=== PATIENT | male | born 1985 | race Caucasian/White ===

== ENCOUNTER 2017-11-08 22:39 | Emergency (ER) | payer MEDICAID ==
[~2017-11-08] VITALS: Ht 177.8 cm; Wt 74.4 kg
[~2017-11-08 22:39] MED LIST: CLOT15CR5 TOP; PALI234D IM; PHEN100C4 PO
[2017-11-08 22:40] VITALS: BP 144/87
[2017-11-08] MEDS ORDERED: PENI250T2 PO (22:55)
[2017-11-08] MEDS ORDERED: TRAM50TA2 PO (22:55)
[2017-11-08] MEDS ORDERED: HYDROcodone/acetaminophen 10/325mg tab PO ONE (22:55)
[2017-11-08] MEDS ORDERED: CefTRIAXone 250MG IM Kit w/LIDOcaine IM ONE (22:55)
[2017-11-08] MEDS ORDERED: ondansetron 4mg rapidly disintigrating tab PO ONE (23:00)
== END 2017-11-08 23:13 | disposition home or self-care (01) ==
LOC: ER 22:39
DX: K04.7 Periapical abscess without sinus (principal); F12.90 Cannabis use, unspecified, uncomplicated; Z56.0 Unemployment, unspecified; Z98.890 Other specified postprocedural states; Z88.6 Allergy status to analgesic agent
CPT/HCPCS: 96372; 99283; J0696

== ENCOUNTER 2017-11-10 14:45 | Emergency (ER) | payer MEDICAID ==
[~2017-11-10] VITALS: Ht 177.8 cm; Wt 76.0 kg
[~2017-11-10 14:45] MED LIST changes: +PENI250T2 PO; +TRAM50TA2 PO
[2017-11-10 14:55] VITALS: BP 112/80
== END 2017-11-10 17:30 | disposition left against medical advice (07) ==
LOC: ER 14:46
DX: K08.89 Other specified disorders of teeth and supporting structures (principal); Z53.21 Procedure and treatment not carried out due to patient leaving prior to being seen by health care provider

== ENCOUNTER 2019-07-08 13:14 | Emergency (ER) | payer MEDICAID ==
[~2019-07-08] VITALS: Ht 177.8 cm; Wt 72.7 kg
[~2019-07-08 13:14] MED LIST changes: -PENI250T2 PO; -TRAM50TA2 PO
[2019-07-08] MEDS ORDERED: orphenadrine citrate 60mg/2ml inj. IM ONE (13:30)
[2019-07-08] MEDS ORDERED: ondansetron 4mg rapidly disintigrating tab PO ONE (13:40)
[2019-07-08] MEDS ORDERED: ORPH100T2 PO (14:10)
[2019-07-08] MEDS ORDERED: ketorolac trometh inj. 60 MG/2 ML VIAL IM ONE (14:10)
[2019-07-08] MEDS ORDERED: HYDROcodone/acetaminophen 10/325mg tab PO ONE (14:10)
[2019-07-08] MEDS ORDERED: HYDR-4353 PO (14:10)
--- NOTE | 2019-07-08 15:08 | NUR ---
PATIENT WAS GIVEN NORCO AND KETOROLAC FOR PAIN. PATIENT HAS LISTED THAT KETOROLAC IS AN ALLERGY AND STATES WHEN HE RECEIVED IT, HE FELT "YUCKY". PATIENT INFORMED THAT HE WAS GIVEN THIS MED AND WILL BE OBSERVED FOR REACTION, PRIOR TO DC FROM ER. DR. GARCIA NOTIFIED.
[2019-07-08 15:25] VITALS: BP 121/72
== END 2019-07-08 15:29 | disposition home or self-care (01) ==
LOC: ER 13:15
DX: S29.012A Strain of muscle and tendon of back wall of thorax, initial encounter (principal); F12.90 Cannabis use, unspecified, uncomplicated; F17.200 Nicotine dependence, unspecified, uncomplicated; Z56.0 Unemployment, unspecified; Z98.890 Other specified postprocedural states; Z88.6 Allergy status to analgesic agent; W18.30XA Fall on same level, unspecified, initial encounter; Y93.89 Activity, other specified; Y92.89 Other specified places as the place of occurrence of the external cause; Y99.9 Unspecified external cause status
CPT/HCPCS: 96372; 99284; J1885; J2360

== ENCOUNTER 2019-07-27 13:56 | Inpatient (IN) | payer MEDICAID ==
[~2019-07-27] VITALS: Ht 180.3 cm; Wt 75.0 kg
[~2019-07-27 13:56] MED LIST changes: +HYDR-4353 PO; +ORPH100T2 PO
[2019-07-27] MEDS ORDERED: normal saline 1000ML IV soln IVB ONE (14:15)
--- NOTE | 2019-07-27 14:43 | NUR ---
Pt returned from CT scan via w/c. Pt continues to be confused and is speaking incoherently. Pt attempted to put the pulse in his pocket. Pt reminded to stay in the bed and to leave the monitoring cables connected.
[2019-07-27 14:48] LABS: CLARITY,URINE CLEAR (Clear); COLOR,URINE STRAW (Yellow); GLUCOSE, URINE NEGATIVE (Neg); KETONES,URINE NEGATIVE (Neg); LEUKOCYTE ESTERASE ,URINE NEGATIVE (Neg); NITRITES, URINE NEGATIVE (Neg); OCCULT BLOOD,URINE NEGATIVE (Neg); PROTEIN,URINE NEGATIVE (Neg); UROBILINOGEN,URINE 0.2 E.U/dL (0.2-1.0)
[2019-07-27 14:49] LABS: BASOPHILS # (AUTO) 0.1 X10'3 (0-0.2); BASOPHILS % (AUTO) 0.6 % (0-1); EOSINOPHILS # (AUTO) 0.2 X10'3 (0-0.9); EOSINOPHILS % (AUTO) 1.8 % (0-6); HEMOGLOBIN 16.5 g/dl (14.0-17.9); LYMPHOCYTES # (AUTO) 2.6 X10'3 (1.1-4.8); LYMPHOCYTES % (AUTO) 23.8 % (21-51); MEAN CORPUSCULAR HEMOGLOBIN 32.1 PG (27.0-31.0); MEAN CORPUSCULAR HGB CONC 33.8 g/dL (33.0-36.5); MEAN PLATELET VOLUME 7.1 FL (7.4-10.4); MONOCYTES # (AUTO) 0.8 X10'3 (0-0.9); MONOCYTES % (AUTO) 7.2 % (2-12); NEUTROPHILS # (AUTO) 7.2 X10'3 (1.8-7.7); NEUTROPHILS % (AUTO) 66.6 % (42-75); PLATELET COUNT 272 X10'3 (140-440); RED BLOOD COUNT 5.15 X10'6 (4.70-6.10); RED CELL DISTRIBUTION WIDTH 12.9 % (11.5-14.5); WHITE BLOOD COUNT 10.8 X10'3 (4.5-11.0)
[2019-07-27 14:52] LABS: UA COLLECTION TYPE CLN CATCH MIDSTREAM
[2019-07-27 14:55] LABS: URINE AMPHETAMINE SCREEN NEGATIVE (Neg); URINE BARBITUATE SCREEN NEGATIVE (Neg); URINE BENZODIAZEPINES SCREEN NEGATIVE (Neg); URINE CANNABINOID SCREEN POSITIVE (Neg); URINE COCAINE SCREEN NEGATIVE (Neg); URINE METHADONE SCREEN NEGATIVE (Neg); URINE OPIATE SCREEN NEGATIVE (Neg); URINE PHENCYCLIDINE SCREEN NEGATIVE (Neg)
[2019-07-27 15:01] LABS: PARTIAL THROMBOPLASTIN TIME 30 SECONDS (22-32)
[2019-07-27 15:13] LABS: ALANINE AMINOTRANSFERASE 24 U/L (12-78); ALBUMIN 4.1 G/DL (3.4-5.0); ALBUMIN/GLOBULIN RATIO 1.2 (1.1-1.5); ALKALINE PHOSPHATASE 72 IU/L (46-116); ANION GAP 6 (8-16); ASPARTATE AMINO TRANSFERASE 19 U/L (10-37); BILIRUBIN,TOTAL 0.5 MG/DL (0.1-1.0); BLOOD UREA NITROGEN 8 MG/DL (7-18); BUN/CREATININE RATIO 9.8 (5.4-32.0); CHLORIDE 106 MMOL/L (99-107); CREATININE 0.82 MG/DL (0.60-1.10); ETHANOL < 0.010 GM/DL (0.0-0.010); GLUCOSE 92 MG/DL (70-104); POTASSIUM 3.8 MMOL/L (3.5-5.1); SODIUM 141 MMOL/L (135-145); TOTAL CARBON DIOXIDE 28.8 MMOL/L (24-32); TOTAL PROTEIN 7.5 G/DL (6.4-8.2); TROPONIN I < 0.04 NG/ML (0.0-0.05); eGFR > 90 ML/MIN
[2019-07-27] MEDS ORDERED: LORazepam 2 mg/ml vial IV ONE ×5 (15:25→17:05)
--- NOTE | 2019-07-27 15:55 | NUR ---
Pt placed in two point wrist restraints due to confusion and pulling at the IV and monitor leads.
[2019-07-27 16:07] LABS: VALPROATE < 3.0 UG/ML (50-100)
[2019-07-27] MEDS ORDERED: iohexol 350MG/ML 100ml bottle IV ONE (16:49)
[2019-07-27 16:58] LABS: ACETAMINOPHEN < 2.0 UG/ML (10-30)
[2019-07-27 18:00] LABS: ABG BASE EXCESS -5.3 mmol/L (-2.0-3.0); ABG HCO3 17.2 mmol/L (22.0-26.0); ABG OXYGEN SATURATION 97.6 % (95-98); ABG PCO2 (T) 27.3 mmHg (35.0-45.0); ABG PH (T) 7.418 (7.350-7.450); ABG PO2 (T) 112.5 mmHg (83-108); FCOHb 2.7 % (0.5-1.5); FMetHb 0.1 % (0.3-1.12); FO2Hb 94.9 % (94-100); TOTAL HEMOGLOBIN 16.9 G/dl (14.0-17.9)
[2019-07-27] MEDS ORDERED: ACET-75 PO (18:33)
[2019-07-27] MEDS ORDERED: BACL10TA2 PO (18:33)
[2019-07-27] MEDS ORDERED: IBUP-1986 PO (18:33)
--- NOTE | 2019-07-27 19:50 | NUR ---
Both wrist restraints removed, pt is sleeping with even and unlabored respirations. Pt has stable vitals.
[2019-07-27] MEDS ORDERED: ondansetron/PF 4mg/2ml inj IV PRN (21:30)
[2019-07-27] MEDS ORDERED: dextrose 50%-water 50ml dispensing syringe IV PRN ×2 (21:30)
[2019-07-27] MEDS ORDERED: insulin Lispro (HumaLOG) vial - multi-dose SQ SCH (21:30)
[2019-07-27] MEDS ORDERED: dextrose ORAL solution 15 GM/59 ML bottle PO PRN ×2 (21:30)
[2019-07-27] MEDS ORDERED: magnesium 2GM in 50ml NS 50 ML IV PRN (21:30)
[2019-07-27] MEDS ORDERED: MESSAGE TO PHARMACY PO ONE (21:30)
[2019-07-27] MEDS ORDERED: potassium Cl 20 mEq SR tablet PO PRN ×2 (21:30)
[2019-07-27] MEDS ORDERED: magnesium 4gm in 100ml NS 100 ML IV PRN (21:30)
[2019-07-27] MEDS ORDERED: mag hydrox/Alum hydrox/simeth 30ml oral suspension PO PRN (21:30)
[2019-07-27] MEDS ORDERED: magnesium hydroxide 30ml (MOM) UD suspension PO PRN (21:30)
[2019-07-27] MEDS ORDERED: morphine 2 MG/ML inj. syringe IV PRN ×2 (21:30)
[2019-07-27] MEDS ORDERED: potassium CL 10mEq/100ml bag 100 ML IV PRN ×2 (21:30)
[2019-07-27] MEDS ORDERED: acetaminophen 325mg tablet PO PRN ×2 (21:30)
[2019-07-27] MEDS ORDERED: glucagon, human recombinant 1mg kit SUBCUT PRN (21:30)
[2019-07-27] MEDS: normal saline 1000ml 1,000 ML IV SCH (21:50)
--- NOTE | 2019-07-27 22:38 | NUR ---
I have received report from SADAF Rangel (Ed) and had the opportunity to ask questions. Pt will be transferred to 3028B from ED.
--- NOTE | 2019-07-27 22:45 | NUR ---
Pt came to the unit via gurney. Pt is drowsy (had Ativan @ ED ). VS : BP = 122/76; 97.8, 63 bpm, 16 resp, 96 % O2 sat @ RA. Pt belongings are with the pt. Placed on tele monitor (# 43). MRSA nasal swab collected; 2-RN skin assessment done.
[2019-07-27 22:50] VITALS: BP 122/76
[2019-07-28] MEDS ORDERED: LORazepam 2 mg/ml vial IV PRN (01:50)
[2019-07-28] MEDS ORDERED: thiamine inj. 100 MG in normal saline 100ml IV soln 100 ML IV ONE (01:50)
[2019-07-28] MEDS ORDERED: haloperidol 5mg tablet PO PRN (01:50)
[2019-07-28] MEDS ORDERED: haloperidol lactate 5mg/ml inj IM PRN (01:50)
[2019-07-28] MEDS ORDERED: LORazepam 1 MG tablet PO PRN (01:50)
[2019-07-28] MEDS ORDERED: thiamine inj. 100 MG in normal saline 100ml IV soln 100 ML IV SCH (01:51)
[2019-07-28 02:00] VITALS: BP 108/72
--- NOTE | 2019-07-28 04:33 | NUR ---
Paged Dr. Bell. PAGER ID: [phone] MESSAGE: This is Margie RN PCU pt in room 3028B , Chirag Pineda, 33 M has no diet on file. Pt's dx : Encephalopathy, Syncope; hx of seizure. What diet do you want him on? Thanks! x [phone]
[2019-07-28 05:55] LABS: BASOPHILS % (AUTO) 0.3 % (0-1); EOSINOPHILS # (AUTO) 0.2 X10'3 (0-0.9); EOSINOPHILS % (AUTO) 2.2 % (0-6); HEMATOCRIT 49.7 % (42.0-52.0); LYMPHOCYTES # (AUTO) 2.3 X10'3 (1.1-4.8); LYMPHOCYTES % (AUTO) 23.1 % (21-51); MEAN CORPUSCULAR HEMOGLOBIN 32.2 PG (27.0-31.0); MEAN CORPUSCULAR HGB CONC 34.2 g/dL (33.0-36.5); MEAN PLATELET VOLUME 7.1 FL (7.4-10.4); MONOCYTES # (AUTO) 0.9 X10'3 (0-0.9); MONOCYTES % (AUTO) 9.3 % (2-12); NEUTROPHILS # (AUTO) 6.4 X10'3 (1.8-7.7); NEUTROPHILS % (AUTO) 65.1 % (42-75); PLATELET COUNT 256 X10'3 (140-440); RED BLOOD COUNT 5.28 X10'6 (4.70-6.10); WHITE BLOOD COUNT 9.9 X10'3 (4.5-11.0)
[2019-07-28 06:00] VITALS: BP 129/77
[2019-07-28 06:20] LABS: ALANINE AMINOTRANSFERASE 19 U/L (12-78); ALBUMIN 3.6 G/DL (3.4-5.0); ALBUMIN/GLOBULIN RATIO 1.1 (1.1-1.5); ALKALINE PHOSPHATASE 77 IU/L (46-116); ANION GAP 7 (8-16); ASPARTATE AMINO TRANSFERASE 16 U/L (10-37); BILIRUBIN,TOTAL 0.6 MG/DL (0.1-1.0); BLOOD UREA NITROGEN 9 MG/DL (7-18); BUN/CREATININE RATIO 12.9 (5.4-32.0); CALCIUM 8.6 MG/DL (8.5-10.1); CHLORIDE 106 MMOL/L (99-107); GLUCOSE 81 MG/DL (70-104); MAGNESIUM 2.1 MG/DL (1.5-2.4); POTASSIUM 3.8 MMOL/L (3.5-5.1); SODIUM 140 MMOL/L (135-145); TOTAL CARBON DIOXIDE 26.9 MMOL/L (24-32); TOTAL PROTEIN 6.9 G/DL (6.4-8.2); eGFR > 90 ML/MIN
--- NOTE | 2019-07-28 06:39 | NUR ---
Problems reprioritized. Patient report given, questions answered & plan of care reviewed with SADAF Dawn.
[2019-07-28] MEDS: normal saline 1000ml 1,000 ML IV SCH ×2 (07:27→16:02)
[2019-07-28] MEDS: baclofen 10mg tablet PO SCH ×3 (08:00→21:07)
[2019-07-28] MEDS: K and/or MAG REPLACEMENT MC SCH ×2 (08:00→20:00)
[2019-07-28] MEDS ORDERED: MVI, adult No.4 with vit. K 10 ML in dextrose 5% water 500ml 500 ML IV SCH ×2 (08:00)
[2019-07-28] MEDS ORDERED: folic acid 1mg/0.2ml inj IV SCH (08:00)
--- NOTE | 2019-07-28 08:00 | NUR ---
Pt states he has trouble starting his stream and needs to stand up to void most times Addendum: 07/28/19 at 1745 by Coni KU Amended: Links added.
[2019-07-28] MEDS ORDERED: acetaminophen 325mg tablet PO PRN (08:51)
--- NOTE | 2019-07-28 10:40 | NUR ---
PAGER ID: [phone] MESSAGE: Nereyda owens [phone] [place] [id number]- he is alert and passed a bedside swallow test. Can I order a diet and change IV meds to PO?
[2019-07-28 11:00] VITALS: BP 146/82
[2019-07-28 15:45] VITALS: BP_SYST 112; BP_SYST 117; BP_DIAS 72; BP_DIAS 78
[2019-07-28 18:00] VITALS: BP 115/73
--- NOTE | 2019-07-28 18:40 | NUR ---
Patient in room PCU 3028. I have received report from Nereyda TALAVERA and had the opportunity to ask questions and assume patient care.
[2019-07-28] MEDS ORDERED: insulin glargine (Lantus) pen - multi-dose SQ SCH (21:00)
[2019-07-28 22:00] VITALS: BP_SYST 108; BP_SYST 110; BP_DIAS 61; BP_DIAS 64; BP_DIAS 68
[2019-07-29 02:00] VITALS: BP 113/71
[2019-07-29 05:53] LABS: BASOPHILS # (AUTO) 0.1 X10'3 (0-0.2); BASOPHILS % (AUTO) 0.5 % (0-1); EOSINOPHILS # (AUTO) 0.3 X10'3 (0-0.9); HEMATOCRIT 47.3 % (42.0-52.0); HEMOGLOBIN 15.8 g/dl (14.0-17.9); LYMPHOCYTES # (AUTO) 2.6 X10'3 (1.1-4.8); LYMPHOCYTES % (AUTO) 26.7 % (21-51); MEAN CORPUSCULAR HGB CONC 33.3 g/dL (33.0-36.5); MEAN CORPUSCULAR VOLUME 95.9 FL (78-98); MEAN PLATELET VOLUME 7.3 FL (7.4-10.4); MONOCYTES # (AUTO) 0.9 X10'3 (0-0.9); MONOCYTES % (AUTO) 9.4 % (2-12); NEUTROPHILS # (AUTO) 5.8 X10'3 (1.8-7.7); NEUTROPHILS % (AUTO) 60.4 % (42-75); PLATELET COUNT 257 X10'3 (140-440); RED BLOOD COUNT 4.93 X10'6 (4.70-6.10); RED CELL DISTRIBUTION WIDTH 13.2 % (11.5-14.5); WHITE BLOOD COUNT 9.6 X10'3 (4.5-11.0)
[2019-07-29 06:00] VITALS: BP 119/63
[2019-07-29 06:18] LABS: ALANINE AMINOTRANSFERASE 14 U/L (12-78); ALBUMIN 3.4 G/DL (3.4-5.0); ALBUMIN/GLOBULIN RATIO 1.1 (1.1-1.5); ALKALINE PHOSPHATASE 68 IU/L (46-116); ANION GAP 6 (8-16); ASPARTATE AMINO TRANSFERASE 15 U/L (10-37); BILIRUBIN,TOTAL 0.5 MG/DL (0.1-1.0); BLOOD UREA NITROGEN 14 MG/DL (7-18); BUN/CREATININE RATIO 15.1 (5.4-32.0); CALCIUM 8.7 MG/DL (8.5-10.1); CHLORIDE 106 MMOL/L (99-107); CREATININE 0.93 MG/DL (0.60-1.10); GLUCOSE 78 MG/DL (70-104); MAGNESIUM 1.9 MG/DL (1.5-2.4); POTASSIUM 3.8 MMOL/L (3.5-5.1); SODIUM 139 MMOL/L (135-145); TOTAL CARBON DIOXIDE 27.3 MMOL/L (24-32); TOTAL PROTEIN 6.6 G/DL (6.4-8.2); eGFR > 90 ML/MIN
--- NOTE | 2019-07-29 06:22 | NUR ---
Problems reprioritized. Patient report given, questions answered & plan of care reviewed with Keli TALAVERA.
--- NOTE | 2019-07-29 06:28 | NUR ---
Patient in room PCU 3028. I have received report from Mirlande TALAVERA and had the opportunity to ask questions and assume patient care.
[2019-07-29] MEDS: K and/or MAG REPLACEMENT MC SCH (07:33)
[2019-07-29] MEDS: baclofen 10mg tablet PO SCH (07:34)
[2019-07-29] MEDS: normal saline 1000ml 1,000 ML IV SCH (07:35)
[2019-07-29] MEDS ORDERED: folic acid 1mg tablet PO SCH (08:00)
[2019-07-29] MEDS ORDERED: thiamine 100mg tablet PO SCH (08:00)
[2019-07-29] MEDS ORDERED: multivitamins, therapeutics tablet PO SCH (08:00)
--- NOTE | 2019-07-29 10:08 | NUR ---
Documented malnutrition risk screening on this patient, will continue to monitor closely.
[2019-07-29] MEDS ORDERED: THIA100T70 PO (10:52)
[2019-07-29] MEDS ORDERED: FOLI0.4T2 PO (10:53)
--- NOTE | 2019-07-29 11:13 | NUR ---
Patient requesting front wheel walker upon discharge, Dr Yarbrough okay with this given the PT notes, spoke with CM and they will get the patient a front wheel walker today. Will continue to monitor the patient closely.
--- NOTE | 2019-07-29 12:05 | NUR ---
Paged PT to come fit patient for walker before being discharged.
--- NOTE | 2019-07-29 12:13 | NUR ---
Removed PIV with no issues, cannula intact. Coban applied
--- NOTE | 2019-07-29 12:20 | NUR ---
Patient stable for discharge per MD order, discharge instructions reviewed with patient and all questions answered, callled new prescriptions into [facility] pharmacy on [address] [place], PIV taken out, all belongings collected and sent with the patient, front wheel walker given to patient before discharge, left the unit at 1220 with RN to private vehicle.
== END 2019-07-29 12:20 | disposition home or self-care (01) | DRG 52 ==
LOC: ER 13:56 → ED HOLD 21:27 → PCU 3S 22:47
PROVIDERS: ADMIT Family Medicine; ATTEND Family Medicine
PROC: BW291ZZ Computerized Tomography (CT Scan) of Head and Neck using Low Osmolar Contrast (ICD-10-PCS; 2019-07-27)
PROC: 4A10X4Z Monitoring of Central Nervous Electrical Activity, External Approach (ICD-10-PCS; principal; 2019-07-28)
DX: G92 Toxic encephalopathy (principal); E11.9 Type 2 diabetes mellitus without complications; F10.239 Alcohol dependence with withdrawal, unspecified; G40.909 Epilepsy, unspecified, not intractable, without status epilepticus; F12.90 Cannabis use, unspecified, uncomplicated; F15.90 Other stimulant use, unspecified, uncomplicated; R94.01 Abnormal electroencephalogram [EEG]; Z82.49 Family history of ischemic heart disease and other diseases of the circulatory system; Z87.891 Personal history of nicotine dependence; Z88.8 Allergy status to other drugs, medicaments and biological substances; Z79.899 Other long term (current) drug therapy; T40.7X5A Adverse effect of cannabis (derivatives), initial encounter
CPT/HCPCS: 36415; 36600; 70450; 70496; 70498; 71045; 80053; 80164; 80305; 80320; 80329; 81003; 82803; 82948; 83036; 83735; 84484; 85018; 85025; 85610; 85730; 87081; 93005; 95816; 96361; 96374; 96375; 97110; 97112; 97116; 97161; 97530; 99285; G0378; J1815; J2060; J3411; J7030; Q9967

== ENCOUNTER 2019-08-04 18:30 | Emergency (ER) | payer MEDICAID ==
[~2019-08-04] VITALS: Ht 177.8 cm; Wt 79.5 kg
[~2019-08-04 18:30] MED LIST changes: +ACET-75 PO; +BACL10TA2 PO; -CLOT15CR5 TOP; +FOLI0.4T2 PO; -HYDR-4353 PO; +IBUP-1986 PO; -ORPH100T2 PO; -PALI234D IM; -PHEN100C4 PO; +THIA100T70 PO
[2019-08-04 18:46] LABS: BASOPHILS % (AUTO) 0.3 % (0-1); EOSINOPHILS # (AUTO) 0.1 X10'3 (0-0.9); EOSINOPHILS % (AUTO) 0.7 % (0-6); HEMATOCRIT 49.2 % (42.0-52.0); HEMOGLOBIN 16.5 g/dl (14.0-17.9); LYMPHOCYTES # (AUTO) 3.2 X10'3 (1.1-4.8); LYMPHOCYTES % (AUTO) 24.8 % (21-51); MEAN CORPUSCULAR HEMOGLOBIN 31.4 PG (27.0-31.0); MEAN CORPUSCULAR HGB CONC 33.6 g/dL (33.0-36.5); MEAN CORPUSCULAR VOLUME 93.6 FL (78-98); MONOCYTES # (AUTO) 1.1 X10'3 (0-0.9); MONOCYTES % (AUTO) 8.6 % (2-12); NEUTROPHILS # (AUTO) 8.5 X10'3 (1.8-7.7); NEUTROPHILS % (AUTO) 65.6 % (42-75); PLATELET COUNT 284 X10'3 (140-440); RED BLOOD COUNT 5.26 X10'6 (4.70-6.10); RED CELL DISTRIBUTION WIDTH 12.9 % (11.5-14.5)
[2019-08-04] MEDS ORDERED: normal saline 1000ML IV soln IVB ONE (18:50)
[2019-08-04 19:08] LABS: ALANINE AMINOTRANSFERASE 17 U/L (12-78); ALBUMIN 4.2 G/DL (3.4-5.0); ALBUMIN/GLOBULIN RATIO 1.2 (1.1-1.5); ALKALINE PHOSPHATASE 75 IU/L (46-116); ANION GAP 12 (8-16); ASPARTATE AMINO TRANSFERASE 20 U/L (10-37); BILIRUBIN,TOTAL 0.5 MG/DL (0.1-1.0); BLOOD UREA NITROGEN 12 MG/DL (7-18); BUN/CREATININE RATIO 15.2 (5.4-32.0); CHLORIDE 106 MMOL/L (99-107); CREATININE 0.79 MG/DL (0.60-1.10); GLUCOSE 90 MG/DL (70-104); POTASSIUM 3.5 MMOL/L (3.5-5.1); SODIUM 143 MMOL/L (135-145); TOTAL CARBON DIOXIDE 25.2 MMOL/L (24-32); TOTAL PROTEIN 7.8 G/DL (6.4-8.2); eGFR > 90 ML/MIN
[2019-08-04 19:28] LABS: ETHANOL < 0.010 GM/DL (0.0-0.010); MAGNESIUM 1.8 MG/DL (1.5-2.4)
[2019-08-04 19:48] LABS: URINE AMPHETAMINE SCREEN NEGATIVE (Neg); URINE BARBITUATE SCREEN NEGATIVE (Neg); URINE BENZODIAZEPINES SCREEN NEGATIVE (Neg); URINE CANNABINOID SCREEN POSITIVE (Neg); URINE COCAINE SCREEN NEGATIVE (Neg); URINE METHADONE SCREEN NEGATIVE (Neg); URINE OPIATE SCREEN NEGATIVE (Neg); URINE PHENCYCLIDINE SCREEN NEGATIVE (Neg)
[2019-08-04] MEDS ORDERED: chlordiazePOXIDE 25mg capsule PO ONE (20:30)
[2019-08-04] MEDS ORDERED: levetiracetam-NS 1000mg/100ml 100 ML IV ONE (20:35)
--- NOTE | 2019-08-04 21:37 | NUR ---
Pt states he took 20-dayna baclofen (unk Mg) and 5-10 Flexeril at approx. [id number] hours today.
--- NOTE | 2019-08-04 21:56 | NUR ---
Contacted Poison Control who stated pt. should be observed for 6-8 hours. Watch for resp. depression and QRS complex widening (treat widening >.12ms with bicarb boluses). Sz's can be treated with benzos. Advised to add tylenol and ASA levels to labs.
--- NOTE | 2019-08-04 21:56 | NUR ---
STATED TO [facility] AWARE.
[2019-08-04] MEDS ORDERED: ondansetron/PF 4mg/2ml inj IV ONE (22:00)
[2019-08-04 22:15] LABS: ACETAMINOPHEN < 2.0 UG/ML (10-30)
[2019-08-04 23:57] LABS: CLARITY,URINE CLEAR (Clear); COLOR,URINE YELLOW (Yellow); GLUCOSE, URINE NEGATIVE (Neg); KETONES,URINE NEGATIVE (Neg); LEUKOCYTE ESTERASE ,URINE NEGATIVE (Neg); NITRITES, URINE NEGATIVE (Neg); OCCULT BLOOD,URINE NEGATIVE (Neg); PH,URINE 5.5 (4.8-8.0); PROTEIN,URINE NEGATIVE (Neg); UA COLLECTION TYPE CLN CATCH MIDSTREAM; UROBILINOGEN,URINE 0.2 E.U/dL (0.2-1.0)
--- NOTE | 2019-08-05 00:30 | NUR ---
Packet sent to [facility].
--- NOTE | 2019-08-05 02:07 | NUR ---
Pt resting quietly, respirations normal, no s/s of distress.
--- NOTE | 2019-08-05 06:54 | NUR ---
Patient sleeping supine. No distress observed. Continue to monitor.
[2019-08-05] MEDS ORDERED: ondansetron 4mg rapidly disintigrating tab PO ONE (07:50)
[2019-08-05] MEDS ORDERED: levetiracetam inj 1,000 MG in normal saline 100ml IV soln 90 ML IV SCH (08:00)
[2019-08-05] MEDS: levetiracetam 250mg tablet PO SCH ×2 (08:04→20:00)
--- NOTE | 2019-08-05 08:25 | NUR ---
Patient feeling nausea and dizzy. Tech to perform orthostatic vital signs. Patient states he feels like this when he has been drinking but his Tox screen was negative for ETOH. Ortho statics look good. Dr Grullon evaluated patient and ordered 1 liter IV fluids. Patient feels like he is spinning. Continue to monitor.
[2019-08-05] MEDS ORDERED: normal saline 1000ml 1,000 ML IV ONE (08:40)
--- NOTE | 2019-08-05 09:57 | NUR ---
Patient received 1 liter bolus. Patient states he is feeling a little better but still not great. Continue to monitor.
--- NOTE | 2019-08-05 10:50 | NUR ---
Patient sleeping supine. No distress observed. Continue to monitor.
--- NOTE | 2019-08-05 12:30 | NUR ---
[facility] evaluating [facility]. Continue to monitor.
--- NOTE | 2019-08-05 14:30 | NUR ---
Patient sleeping, no distress observed. Continue to monitor.
--- NOTE | 2019-08-05 16:01 | NUR ---
Patient sleeping supine. No distress observed. Continue to monitor.
--- NOTE | 2019-08-05 17:01 | NUR ---
Patient watching movie. No distress observed. Continue to monitor.
--- NOTE | 2019-08-05 19:00 | NUR ---
Patient is A&Ox3 SALAZAR and is appropriate. He states that he doesn't feel suicidal anymore "I just want to leave". At this time he is watching a movie quietly.
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
[2019-08-05] MEDS ORDERED: LORazepam 2 mg/ml vial IM ONE (20:05)
[2019-08-05] MEDS ORDERED: diphenhydrAMINE 50 mg/ml inj IM ONE (20:05)
[2019-08-05] MEDS ORDERED: haloperidol lactate 5mg/ml inj IM ONE (20:05)
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
--- NOTE | 2019-08-06 03:59 | NUR ---
ASSUMED CARE OF PT FROM ROSELINE TALAVERA. PT CONTINUES TO SLEEP AND DOES NOT APPEAR TO BE IN ANY DISTRESS. RR REGULAR. WILL CONTINUE TO MONITOR.
--- NOTE | 2019-08-06 05:18 | NUR ---
PT RESTING COMFORTABLY- DOES NOT APPEAR TO BE IN ANY DISTRESS HE SLEEPS. RR REGULAR. WILL CONTINUE TO MONITOR.
--- NOTE | 2019-08-06 06:25 | NUR ---
Patient awoke and ambulatory, steady gait to BR. Continue to monitor.
[2019-08-06 08:09] VITALS: BP 107/65
[2019-08-06] MEDS: levetiracetam 250mg tablet PO SCH (08:37)
[2019-08-06] MEDS ORDERED: KEP500T PO (11:19)
[2019-08-08] MEDS ORDERED: KEP500T PO (10:38)
== END 2019-08-06 12:18 | disposition home or self-care (01) ==
LOC: ER 18:31
DX: G40.909 Epilepsy, unspecified, not intractable, without status epilepticus (principal); R45.851 Suicidal ideations; F12.90 Cannabis use, unspecified, uncomplicated; F15.90 Other stimulant use, unspecified, uncomplicated; Z56.0 Unemployment, unspecified; Z98.890 Other specified postprocedural states; Z88.6 Allergy status to analgesic agent; Z79.899 Other long term (current) drug therapy
CPT/HCPCS: 36415; 71045; 80053; 80305; 80320; 80329; 81003; 83735; 84443; 84484; 85025; 93005; 96365; 96372; 96375; 99285; J1200; J1630; J1953; J2060; J2405; J7030

== ENCOUNTER 2019-11-24 10:19 | Emergency (ER) | payer MEDICAID ==
[~2019-11-24] VITALS: Ht 177.8 cm; Wt 77.3 kg
[~2019-11-24 10:19] MED LIST changes: -ACET-75 PO; -BACL10TA2 PO; -FOLI0.4T2 PO; -IBUP-1986 PO; +KEP500T PO; -THIA100T70 PO
[2019-11-24 11:29] LABS: URINE AMPHETAMINE SCREEN POSITIVE (Neg); URINE BARBITUATE SCREEN NEGATIVE (Neg); URINE BENZODIAZEPINES SCREEN NEGATIVE (Neg); URINE CANNABINOID SCREEN POSITIVE (Neg); URINE COCAINE SCREEN NEGATIVE (Neg); URINE METHADONE SCREEN NEGATIVE (Neg); URINE OPIATE SCREEN NEGATIVE (Neg); URINE PHENCYCLIDINE SCREEN NEGATIVE (Neg)
[2019-11-24 11:55] VITALS: BP 139/88
== END 2019-11-24 11:57 | disposition home or self-care (01) ==
LOC: ER 10:20
DX: F15.90 Other stimulant use, unspecified, uncomplicated (principal); R06.02 Shortness of breath; R07.89 Other chest pain; R42 Dizziness and giddiness; F12.90 Cannabis use, unspecified, uncomplicated; Z86.69 Personal history of other diseases of the nervous system and sense organs; Z98.890 Other specified postprocedural states; Z56.0 Unemployment, unspecified; Z88.8 Allergy status to other drugs, medicaments and biological substances; Z91.040 Latex allergy status
CPT/HCPCS: 80305; 99283

== ENCOUNTER 2019-11-24 18:26 | Emergency (ER) | payer MEDICAID ==
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
== END 2019-11-24 18:33 | disposition left against medical advice (07) ==
LOC: ER 18:27
DX: F22 Delusional disorders (principal); Z53.21 Procedure and treatment not carried out due to patient leaving prior to being seen by health care provider